=== PATIENT | male | born 1995 | race Caucasian/White ===

== ENCOUNTER 2016-12-27 18:52 | Emergency (ER) | payer OTHER ==
[~2016-12-27] VITALS: Ht 172.7 cm; Wt 77.0 kg
[2016-12-27 19:53] VITALS: Ht 172.7 cm; Wt 77.0 kg
[2016-12-27] MEDS ORDERED: ONDANSETRON (ODT) 4 MG TAB ODT STA (23:32)
[2016-12-28] MEDS ORDERED: ACET/BUTAL/CAFF TAB PO ONE
--- NOTE | 2016-12-28 00:06 | RADRPT ---
PROCEDURE: CT Brain without contrast. CLINICAL INDICATION: Headaches TECHNIQUE: A CT of the brain was performed on a [employer] 64-slice CT scanner utilizing axial imaging from the skull base through the vertex without IV contrast. Multiplanar reformatted images were made. Images were reviewed on a PACS workstation. The CTDIvol is 45.01 mGy and the DLP is 720 .23 mGycm. One of the following 3 dose reduction techniques were used: Automated exposure control; adjustment of the mA and/or kV according to patient size; or use of iterative reconstruction technique. COMPARISON: None FINDINGS: There is no intracranial hemorrhage, mass effect, or midline shift. No extra-axial fluid collection is seen. The ventricles and sulci are normal in size and configuration. The density of the brain is normal, and the bales white matter differentiation appears well-preserved. The visualized scalp and calvarium are normal. The bilateral orbits are normal. The bilateral para nasal sinuses, mastoid air cells and middle ear cavities are clear. IMPRESSION: 1. No evidence of acute intracranial hemorrhage, infarcts or acute intracranial pathology. 2. Normal noncontrast head CT. RPTAT: [facility] .Sruthi Higuera MD, MD Date Time Electronically viewed and signed by .Sruthi Higuera MD, MD on 12/28/2016 00:05 .C/
--- NOTE | 2016-12-28 00:09 | ERD ---
ER Documentation Chief Complaint Date/Time DATE: 12/28/16 TIME: 00:01 Chief Complaint c/o headache x1 weeks with nausea. Was having panic attacks prior HPI 21-year-old male presents here in emergency department for complaints of headache for 1 week. Patient discussed pain as throbbing pain, 6/10 scale, is accompanied with nausea. Patient denies any vomiting. Patient denies any head injury. Patient denies any blurry vision. Patient denies any numbness or tingling, denies any changes in balance or memory. Patient took Advil for pain with mild relief. Patient states that he is in a lot of stress lately. Patient denies any runny nose or nasal congestion. ROS All systems reviewed and are negative except as per history of present illness. Medications Home Meds Reported Medications [none] Unknown Strength No Conflict Check 12/28/16 Allergies Allergies: Coded Allergies: No Known Allergy (Unverified , 10/17/13) PMhx/Soc Medical and Surgical Hx: pt denies Surgical Hx History of Surgery: No Anesthesia Reaction: No Hx Neurological Disorder: No Hx Respiratory Disorders: Yes (asthma) Hx Cardiac Disorders: No Hx Psychiatric Problems: No Hx Miscellaneous Medical Probl: No Hx Alcohol Use: No Hx Substance Use: No Hx Tobacco Use: Yes Smoking Status: Current every day smoker FmHx Family History: No coronary disease, No diabetes, No other Physical Exam Vitals Vital Signs Date Time Temp Pulse Resp B/P Pulse Ox O2 Delivery O2 Flow Rate FiO2 12/27/16 19:53 98.6 75 18 116/68 98 Physical Exam GENERAL: The patient is well developed and appropriate for usual state of health, in no apparent distress. CHEST: Clear to auscultation bilaterally. There are no rales, wheezes or rhonchi. HEART: Regular rate and rhythm. No murmurs, clicks, rubs or gallops. No S3 or S4. ABDOMEN: Soft, nontender and nondistended. Good bowel sounds. No rebound or guarding. No gross peritonitis. No gross organomegaly or masses. No Castillo sign or McBurney point tenderness. BACK: No midline or flank tenderness. EXTREMITIES: Equal pulses bilaterally. There is no peripheral clubbing, cyanosis or edema. No focal swelling or erythema. Full range of motion. Grossly neurovascularly intact. NEURO: Alert and oriented. Cranial nerves 2-12 intact. Motor strength in all 4 extremities with 5/5 strength. Sensation grossly intact. Normal speech and gait. Negative Romberg sign. Negative pronator drift SKIN: There is no apparent rash or petechia. The skin is warm and dry. HEMATOLOGIC AND LYMPHATIC: There is no evidence of excessive bruising or lymphedema. No gross cervical, axillary, or inguinal lymphadenopathy. Results 24 hrs Current Medications Medications (Trade) Dose Ordered Sig/Nicholas Route PRN Reason Start Time Stop Time Status Last Admin Dose Admin Acetaminophen/ Butalbital/ Caffeine (Fioricet) 1 tab ONCE ONCE PO 12/28/16 00:00 12/28/16 00:01 DC 12/27/16 23:50 Ondansetron HCl (Zofran Odt) 4 mg ONCE STAT ODT 12/27/16 23:32 12/27/16 23:33 DC 12/27/16 23:39 Patient was given medication for pain here in emergency department, after treatment, patient verbalized feeling much better. Patient's pain is improved.Patient was given Zofran here in the emergency department. After treatment, patient was able to tolerate po fluids here in the emergency department without any vomiting. There is no signs and symptoms of dehydration. PROCEDURE: CT Brain without contrast. CLINICAL INDICATION: Headaches TECHNIQUE: A CT of the brain was performed on a [employer] 64-slice CT scanner utilizing axial imaging from the skull base through the vertex without IV contrast. Multiplanar reformatted images were made. Images were reviewed on a PACS workstation. The CTDIvol is 45.01 mGy and the DLP is 720.23 mGycm. One of the following 3 dose reduction techniques were used: Automated exposure control; adjustment of the mA and/or kV according to patient size; or use of iterative reconstruction technique. COMPARISON: None FINDINGS: There is no intracranial hemorrhage, mass effect, or midline shift. No extra- axial fluid collection is seen. The ventricles and sulci are normal in size and configuration. The density of the brain is normal, and the bales white matter differentiation appears well-preserved. The visualized scalp and calvarium are normal. The bilateral orbits are normal. The bilateral paranasal sinuses, mastoid air cells and middle ear cavities are clear. IMPRESSION: 1. No evidence of acute intracranial hemorrhage, infarcts or acute intracranial pathology. 2. Normal noncontrast head CT. RPTAT: [facility] .Sruthi Higuera MD, Date Time Electronically viewed and signed by .Sruthi Higuera MD, on 12/28/2016 00: 05 .C/ CC: IVÁN GOLDMAN NP Procedures/MDM Medical Decision Making: Patient symptoms are consistent with migraine headache , possible tension headache. There is low suspicion for neurological emergencies at this time since patients neurologic exam is normal. Patient did not have any altered level consciousness, vomiting, changes in balance or memory and did not have any head injury. Patients CT scan of the head does not show any neurological emergencies at this time. Rx: Fioricet Zofran Dispostion: Home. Stable Departure Diagnosis: Primary Impression: Headache Headache type: unspecified Headache chronicity pattern: acute headache Intractability: not intractable Qualified Code: R51 - Acute nonintractable headache, unspecified headache type Condition: Stable Patient Instructions: Self-Care for Headaches IVÁN GOLDMAN NP Dec 28, 2016 00:09
[2016-12-28] MEDS ORDERED: ONDA4TAB14 PO (00:25)
[2016-12-28] MEDS ORDERED: FIORICET PO (00:25)
[2016-12-28 00:40] VITALS: BP 119/67; PULSE 59; RESP 14; TEMP 98.4
== END 2016-12-28 00:40 | disposition home or self-care (01) ==
LOC: FTE 18:52
DX: R51 Headache (principal); J45.909 Unspecified asthma, uncomplicated; R11.0 Nausea; F17.210 Nicotine dependence, cigarettes, uncomplicated
CPT/HCPCS: 70450

== ENCOUNTER 2017-01-27 16:19 | Emergency (ER) | payer OTHER ==
[~2017-01-27] VITALS: Ht 170.2 cm; Wt 81.0 kg
[~2017-01-27 16:19] MED LIST: FIORICET PO; ONDA4TAB14 PO
[2017-01-27 16:22] VITALS: Ht 170.2 cm; Wt 81.0 kg
[2017-01-27] MEDS ORDERED: IBUPROFEN 800 MG TAB PO ONE (17:00)
--- NOTE | 2017-01-27 17:39 | ERD ---
ER Documentation Chief Complaint Date/Time DATE: 01/27/17 TIME: 17:36 Chief Complaint Complains of right foot pain after a door slammed it HPI This is a 21-year-old male who presents the emergency department today complaining of right foot pain after slamming in a door yesterday. Patient states that at the beginning of the year he had a broken toe. States he is taking ibuprofen but it is not helping. Denies any fevers or chills. ROS All systems reviewed and are negative except as per history of present illness. Medications Home Meds Active Scripts Acetaminophen* (Tylophen*) 500 Mg Capsule, 1 CAP PO Q6H Y for PAIN AND OR ELEVATED TEMP, #30 CAP Prov:TIFFANI VILLASENOR PA-C 01/27/17 Naproxen* (Naprosyn*) 500 Mg Tablet, 500 MG PO BID Y for PAIN AND/OR INFLAMMATION, #30 TAB Prov:TIFFANI VILLASENOR PA-C 01/27/17 Ondansetron (Ondansetron Odt) 4 Mg Tab.rapdis, 4 MG PO Q8 Y for NAUSEA AND/OR VOMITING, #30 TAB Prov:IVÁN GOLDMAN CLOSING SUPERVISOR 12/28/16 Acetamin/Butalbital/Caffeine* (Fioricet*) [id number] Tab, 1 TAB PO Q6H Y for PAIN, #30 TAB Prov:IVÁN GOLDMAN CLOSING SUPERVISOR 12/28/16 Reported Medications [none] Unknown Strength No Conflict Check 12/28/16 Allergies Allergies: Coded Allergies: No Known Allergy (Unverified , 10/17/13) PMhx/Soc History of Surgery: No Anesthesia Reaction: No Hx Neurological Disorder: No Hx Respiratory Disorders: Yes (asthma) Hx Cardiac Disorders: No Hx Psychiatric Problems: No Hx Miscellaneous Medical Probl: No Hx Alcohol Use: No Hx Substance Use: No Hx Tobacco Use: Yes Smoking Status: Current every day smoker Physical Exam Vitals Vital Signs Date Time Temp Pulse Resp B/P Pulse Ox O2 Delivery O2 Flow Rate FiO2 01/27/17 16:22 97.8 87 20 128/60 99 Physical Exam Const: NAD Head: Atraumatic Eyes: Normal Conjunctiva ENT: Normal External Ears, Nose and Mouth. Neck: Full range of motion..~ No meningismus. Resp: Clear to auscultation bilaterally Cardio: Regular rate and rhythm, no murmurs Skin: No petechiae or rashes MSk: Right foot with no obvious deformity. No effusion. No ecchymosis. Tenderness to palpation fourth and fifth metatarsal and fourth and fifth digits. Pulses 2+. Distal neurovascularly intact. Neur: Awake and alert Psych: Normal Mood and Affect Results 24 hrs Current Medications Medications (Trade) Dose Ordered Sig/Nicholas Route PRN Reason Start Time Stop Time Status Last Admin Dose Admin Ibuprofen (Motrin) 800 mg ONCE ONCE PO 01/27/17 17:00 01/27/17 17:01 DC 01/27/17 17:07 DIAGNOSTIC IMAGING REPORT Patient: SANTOS WAGNER : 1995 Age: 21 Sex: M MR #: [id number] DOS: 01/27/17 0000 Ordering MD: TIFFANI VILLASENOR PA-C Location: [facility] Room/Bed: PROCEDURE: XR Toes. CLINICAL INDICATION: previous hx 4th "toe fracture" TECHNIQUE: AP, oblique and lateral views of the toes were performed. COMPARISON: No prior studies are available for comparison. FINDINGS: There is normal mineralization and alignment. No fracture or osseous lesion is identified. The joints are normal. The soft tissues are unremarkable. IMPRESSION: No acute osseous abnormality. Physician Gary Date Time Electronically viewed and signed by Physician Gary on 01/27/2017 17: 58 CS/ CC: TIFFANI VILLASENOR PA-C Procedures/MDM This is a 20-year-old male who presents the emergency department today complaining of right foot and toe pain after slamming it in a door yesterday. Patient indicated that he previously had a fracture on his fourth toe. I do not see record of that on patient's medical records however given patient was complaining of pain in trauma and he wanted to make sure that there is nothing worse going on I did obtain images. Per the radiology report images of the right foot due to osseous abnormality. Soft tissues are unremarkable. Symptoms at this time is consistent with sprain versus strain versus contusion. Given Motrin here in the emergency department. He will be given a prescription for Naprosyn and Tylenol for home. Patient declined crutches and an ortho shoe to help ambulate. At this time the patient is stable for discharge and outpatient management. Patient should follow up with their PCP in the next 1-2 days. They may return to the emergency department sooner for any persistent or worsening of symptoms. Patient understood and agreed with the plan. Departure Diagnosis: Primary Impression: Injury of foot Encounter type: initial encounter Laterality: right Qualified Code: S99.921A - Injury of right foot, initial encounter Condition: Fair TIFFANI VILLASENOR PA-C Jan 27, 2017 17:39
--- NOTE | 2017-01-27 17:59 | RADRPT ---
PROCEDURE: XR Toes. CLINICAL INDICATION: previous hx 4th "toe fracture" TECHNIQUE: AP, oblique and lateral views of the toes were performed. COMPARISON: No prior studies are available for comparison. FINDINGS: There is normal mineralization and alignment. No fracture or osseous lesion is identified. The joint s are normal. The soft tissues are unremarkable. IMPRESSION: No acute osseous abnormality. Physician Gary Date Time Electronically viewed and signed by Physician Gary on 01/27/2017 17:58 CS/
[2017-01-27] MEDS ORDERED: ACET500C5 PO (18:09)
[2017-01-27] MEDS ORDERED: NAPR-260 PO (18:09)
== END 2017-01-27 18:15 | disposition home or self-care (01) ==
LOC: FTE 16:19
DX: S99.921A Unspecified injury of right foot, initial encounter (principal); J45.909 Unspecified asthma, uncomplicated; F17.210 Nicotine dependence, cigarettes, uncomplicated; W23.0XXA Caught, crushed, jammed, or pinched between moving objects, initial encounter; Y92.9 Unspecified place or not applicable
CPT/HCPCS: 73630

== ENCOUNTER 2018-07-30 17:02 | Emergency (ER) | payer SELFPAY ==
[~2018-07-30] VITALS: Ht 180.3 cm; Wt 87.1 kg
[~2018-07-30 17:02] MED LIST changes: +ACET500C5 PO; +NAPR-985 PO
[2018-07-30 17:06] VITALS: BP 143/82; PULSE 82; RESP 18; Ht 180.3 cm; Wt 87.1 kg
[2018-07-30] MEDS ORDERED: ONDANSETRON (ODT) 4 MG TAB ODT STA (18:22)
[2018-07-30] MEDS ORDERED: HYDROCODONE/APAP (5/325) TAB PO ONE (18:30)
[2018-07-30] MEDS ORDERED: HYDR-4011 PO (20:40)
[2018-07-30] MEDS ORDERED: ONDA4TAB14 PO (20:40)
[2018-07-30] MEDS ORDERED: METH750T93 PO (20:40)
[2018-07-30] MEDS ORDERED: ACET-141 PO (20:40)
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
== END 2018-07-30 20:48 | disposition home or self-care (01) ==
LOC: FTE 17:02
DX: R51 Headache (principal); J45.909 Unspecified asthma, uncomplicated; F17.210 Nicotine dependence, cigarettes, uncomplicated
CPT/HCPCS: 70450; 72100; 73110